=== PATIENT | male | born 1940 | race Caucasian/White ===

== ENCOUNTER 2020-11-20 12:12 | Inpatient (IN) | payer MEDICARE, MEDICAID ==
[2020-11-20 13:18] LABS: #Lymphocytes 0.9 thou/uL (1.20-3.40); #Monocytes 1.5 thou/uL (0.11-0.59); #Neutrophils 13.8 thou/uL (1.40-6.50); %Basophils 0.3 % (0.0-1.0); %Eosinophils 0.2 % (0.0-10.0); %Lymphocytes 5.7 % (21.0-51.0); %Monocytes 9.4 % (0.0-10.0); %Neutrophils 84.4 % (42.0-75.0); Hemoglobin 10.2 g/dL (14.0-18.0); Mean Corpuscular HGB CONC 30.8 g/dL (32.0-36.0); Mean Corpuscular Hemoglobin 27.8 pg (27.0-31.0); Mean Corpuscular Volume 90.3 fL (78.0-98.0); Mean Platelet Volume 8.2 fL (7.4-10.4); Platelet Count 212 thou/uL (130-400); RBC Distribution Width 13.6 % (11.5-14.5); Red Blood Cell (RBC) Count 3.66 mill/uL (4.70-6.10); White Blood Cell (WBC) Count 16.3 thou/uL (4.8-10.8)
[2020-11-20 13:32] LABS: ALT (SGPT) 44 U/L (8-55); AST (SGOT) 86 U/L (5-34); Albumin 3.2 g/dL (3.4-4.8); Alkaline Phosphatase 367 U/L (40-110); Anion Gap 20 mmol/L (10-20); BUN (Urea Nitrogen) 28 mg/dL (8.4-25.7); Bilirubin, Total 0.5 mg/dL (0.2-1.2); CK (CPK) 79 U/L (30-200); Calc. Creatinine Clearance 0 mL/min (70-130); Carbon Dioxide 24 mmol/L (23-31); Chloride 99 mmol/L (98-107); Globulin 5.3 g/dL (2.4-3.5); Glucose 102 mg/dL (83-110); Potassium 3.3 mmol/L (3.5-5.1); Protein, Total 8.5 g/dL (5.8-8.1); Sodium 140 mmol/L (136-145)
[2020-11-20] MEDS ORDERED: Acetaminophen 325 MG TAB PO PRN (14:21)
[2020-11-20] MEDS ORDERED: Ondansetron PF 4 MG/2 ML Vial IVP PRN (14:21)
[2020-11-20] MEDS ORDERED: Cefepime 2 GM VIAL ONE (14:35)
[2020-11-20] MEDS ORDERED: Potassium Chloride 20 MEQ TAB PO SCH (14:45)
[2020-11-20] MEDS ORDERED: Vancomycin 1 GM/200 ML BAG ONE (15:04)
[2020-11-20 20:55] LABS: Troponin I Less than 0.010 ng/mL (< 0.028)
[2020-11-20] MEDS: Sodium Chloride 0.9% 1,000 ML IV SCH (21:52)
[2020-11-20] MEDS: Clindamycin/D5W 900 MG in Premix Bag 1 BAG IVPB SCH ×2 (22:00→23:00)
[2020-11-20 22:02] VITALS: BMI 16.8
[2020-11-21 06:08] LABS: #Lymphocytes 1.1 thou/uL (1.20-3.40); #Monocytes 1.2 thou/uL (0.11-0.59); #Neutrophils 6.4 thou/uL (1.40-6.50); %Basophils 0.3 % (0.0-1.0); %Eosinophils 0.6 % (0.0-10.0); %Lymphocytes 12.5 % (21.0-51.0); %Monocytes 13.6 % (0.0-10.0); %Neutrophils 73.1 % (42.0-75.0); Hemoglobin 9.3 g/dL (14.0-18.0); Mean Corpuscular HGB CONC 32.2 g/dL (32.0-36.0); Mean Corpuscular Hemoglobin 29.3 pg (27.0-31.0); Mean Corpuscular Volume 90.9 fL (78.0-98.0); Mean Platelet Volume 7.6 fL (7.4-10.4); Platelet Count 166 thou/uL (130-400); RBC Distribution Width 13.6 % (11.5-14.5); Red Blood Cell (RBC) Count 3.18 mill/uL (4.70-6.10); White Blood Cell (WBC) Count 8.8 thou/uL (4.8-10.8)
[2020-11-21] MEDS: Sodium Chloride 0.9% 1,000 ML IV SCH ×2 (06:16→21:24)
[2020-11-21 06:27] LABS: Anion Gap 14 mmol/L (10-20); BUN (Urea Nitrogen) 19 mg/dL (8.4-25.7); Calc. Creatinine Clearance 49 mL/min (70-130); Calcium 8.6 mg/dL (7.8-10.44); Carbon Dioxide 26 mmol/L (23-31); Chloride 106 mmol/L (98-107); Glucose 95 mg/dL (83-110); Potassium 3.6 mmol/L (3.5-5.1); Sodium 142 mmol/L (136-145)
[2020-11-21] MEDS ORDERED: Polyethylene Glycol 3350 17 GM Packet PO PRN (07:28)
[2020-11-21] MEDS ORDERED: Aspirin 325 MG TAB PO PRN (07:28)
[2020-11-21 08:24] LABS: ALT (SGPT) 61 U/L (8-55); AST (SGOT) 112 U/L (5-34); Albumin 2.9 g/dL (3.4-4.8); Alkaline Phosphatase 322 U/L (40-110); Bilirubin, Direct 0.4 mg/dL (0.1-0.3); Bilirubin, Total 0.6 mg/dL (0.2-1.2); Protein, Total 7.5 g/dL (5.8-8.1)
[2020-11-21] MEDS: Pregabalin 50 MG CAP PO SCH ×2 (09:00→21:18)
[2020-11-21] MEDS: Carvedilol 3.125 MG TAB PO SCH ×2 (09:01→18:17)
[2020-11-21] MEDS: Apixaban 5 MG TAB PO SCH ×2 (09:01→21:19)
[2020-11-21] MEDS: Clindamycin/D5W 900 MG in Premix Bag 1 BAG IVPB SCH ×3 (09:02→23:40)
[2020-11-21] MEDS: HYDROcodone/Acetaminophen 10/325 mg Tablet PO PRN ×2 (09:03→15:49)
[2020-11-21] MEDS ORDERED: Iopamidol-370 76% 500 ML 1 ML ONE (10:21)
[2020-11-21 19:46] LABS: Bacteria/HPF 4+ HPF (None Seen); Bilirubin Negative (Negative); Blood, Urine 3+ (Negative); Glucose, Urine (Dipstick) Normal (Negative); Ketone, Urine 10 mg/dL (Negative); Leukocyte 500 Leu/uL (Negative); Nitrite Negative (Negative); Protein, Urine (Dipstick) 100 mg/dL (Neg-Trace); Specific Gravity, Urine 1.042 (1.002-1.036); Squamous Epithelial None Seen HPF (0-3); Urobilinogen Normal mg/dL (Less than 2); WBC/HPF Greater than 50 HPF (0-3)
[2020-11-21 19:47] LABS: Clarity Cloudy (Clear)
[2020-11-21 19:48] LABS: Urine Culture Reflex Yes Yes
[2020-11-21] MEDS: Atorvastatin Calcium 10 MG TAB PO SCH (21:19)
[2020-11-21] MEDS: Mirtazapine 30 MG TAB PO SCH (21:19)
[2020-11-21] MEDS: Loratadine 10 MG TAB PO SCH (21:19)
[2020-11-21] MEDS: Melatonin 3 MG TAB PO SCH (21:19)
[2020-11-22] MEDS: HYDROcodone/Acetaminophen 10/325 mg Tablet PO PRN ×4 (01:08→23:54)
[2020-11-22] MEDS: Sodium Chloride 0.9% 1,000 ML IV SCH ×3 (03:47→23:48)
[2020-11-22] MEDS: cefTRIAXone\\ROCEPHIN 1 GM in Sodium Chloride 0.9% 100 ML IVPB SCH (07:44)
[2020-11-22] MEDS: Clindamycin/D5W 900 MG in Premix Bag 1 BAG IVPB SCH ×3 (08:23→23:56)
[2020-11-22] MEDS: Pregabalin 50 MG CAP PO SCH ×2 (08:23→21:51)
[2020-11-22] MEDS: Apixaban 5 MG TAB PO SCH (08:23)
[2020-11-22] MEDS: Carvedilol 3.125 MG TAB PO SCH ×2 (08:24→16:39)
[2020-11-22] MEDS: Mirtazapine 30 MG TAB PO SCH (21:51)
[2020-11-22] MEDS: Apixaban 2.5 MG TAB PO SCH (21:52)
[2020-11-22] MEDS: Loratadine 10 MG TAB PO SCH (21:52)
[2020-11-22] MEDS: Melatonin 3 MG TAB PO SCH (21:52)
[2020-11-22] MEDS: Atorvastatin Calcium 10 MG TAB PO SCH (21:52)
[2020-11-23 04:58] LABS: #Eosinphils 0.3 thou/uL (0.0-0.7); #Lymphocytes 1.5 thou/uL (1.20-3.40); #Neutrophils 4.9 thou/uL (1.40-6.50); %Basophils 0.4 % (0.0-1.0); %Eosinophils 3.9 % (0.0-10.0); %Lymphocytes 19.7 % (21.0-51.0); %Monocytes 12.6 % (0.0-10.0); %Neutrophils 63.5 % (42.0-75.0); Hemoglobin 9.2 g/dL (14.0-18.0); Mean Corpuscular HGB CONC 30.9 g/dL (32.0-36.0); Mean Corpuscular Hemoglobin 28.3 pg (27.0-31.0); Mean Corpuscular Volume 91.3 fL (78.0-98.0); Mean Platelet Volume 7.9 fL (7.4-10.4); Platelet Count 179 thou/uL (130-400); RBC Distribution Width 13.8 % (11.5-14.5); Red Blood Cell (RBC) Count 3.27 mill/uL (4.70-6.10); White Blood Cell (WBC) Count 7.8 thou/uL (4.8-10.8)
[2020-11-23 05:24] LABS: ALT (SGPT) 74 U/L (8-55); AST (SGOT) 105 U/L (5-34); Albumin 2.6 g/dL (3.4-4.8); Alkaline Phosphatase 263 U/L (40-110); Anion Gap 10 mmol/L (10-20); BUN (Urea Nitrogen) 7 mg/dL (8.4-25.7); Bilirubin, Total 0.4 mg/dL (0.2-1.2); Calc. Creatinine Clearance 66 mL/min (70-130); Calcium 8.6 mg/dL (7.8-10.44); Carbon Dioxide 31 mmol/L (23-31); Chloride 104 mmol/L (98-107); Globulin 4.5 g/dL (2.4-3.5); Glucose 96 mg/dL (83-110); Protein, Total 7.1 g/dL (5.8-8.1); Sodium 142 mmol/L (136-145)
[2020-11-23] MEDS: Clindamycin/D5W 900 MG in Premix Bag 1 BAG IVPB SCH ×2 (09:24→15:43)
[2020-11-23] MEDS: Carvedilol 3.125 MG TAB PO SCH ×2 (09:25→15:43)
[2020-11-23] MEDS: Apixaban 2.5 MG TAB PO SCH ×2 (09:25→21:02)
[2020-11-23] MEDS: Pregabalin 50 MG CAP PO SCH ×2 (09:25→20:46)
[2020-11-23] MEDS: HYDROcodone/Acetaminophen 10/325 mg Tablet PO PRN ×2 (10:11→20:47)
[2020-11-23] MEDS: cefTRIAXone\\ROCEPHIN 1 GM in Sodium Chloride 0.9% 100 ML IVPB SCH (10:11)
[2020-11-23] MEDS ORDERED: Potassium Chloride 20 MEQ TAB PO SCH (17:45)
[2020-11-23] MEDS: Loratadine 10 MG TAB PO SCH (20:46)
[2020-11-23] MEDS: Melatonin 3 MG TAB PO SCH (20:46)
[2020-11-23] MEDS: Atorvastatin Calcium 10 MG TAB PO SCH (20:46)
[2020-11-23] MEDS: Mirtazapine 30 MG TAB PO SCH (21:02)
[2020-11-24] MEDS: Clindamycin/D5W 900 MG in Premix Bag 1 BAG IVPB SCH ×4 (00:25→23:42)
[2020-11-24 05:33] LABS: #Eosinphils 0.4 thou/uL (0.0-0.7); #Lymphocytes 1.5 thou/uL (1.20-3.40); #Neutrophils 5.7 thou/uL (1.40-6.50); %Basophils 0.5 % (0.0-1.0); %Eosinophils 4.7 % (0.0-10.0); %Neutrophils 65.8 % (42.0-75.0); Hemoglobin 10.2 g/dL (14.0-18.0); Mean Corpuscular HGB CONC 31.4 g/dL (32.0-36.0); Mean Corpuscular Hemoglobin 28.7 pg (27.0-31.0); Mean Corpuscular Volume 91.4 fL (78.0-98.0); Mean Platelet Volume 7.8 fL (7.4-10.4); Platelet Count 202 thou/uL (130-400); RBC Distribution Width 13.7 % (11.5-14.5); Red Blood Cell (RBC) Count 3.56 mill/uL (4.70-6.10); White Blood Cell (WBC) Count 8.7 thou/uL (4.8-10.8)
[2020-11-24 05:57] LABS: ALT (SGPT) 60 U/L (8-55); AST (SGOT) 66 U/L (5-34); Albumin 2.6 g/dL (3.4-4.8); Alkaline Phosphatase 261 U/L (40-110); Anion Gap 14 mmol/L (10-20); BUN (Urea Nitrogen) 8 mg/dL (8.4-25.7); Bilirubin, Total 0.4 mg/dL (0.2-1.2); Calc. Creatinine Clearance 67 mL/min (70-130); Calcium 8.7 mg/dL (7.8-10.44); Carbon Dioxide 30 mmol/L (23-31); Chloride 102 mmol/L (98-107); Globulin 4.7 g/dL (2.4-3.5); Glucose 85 mg/dL (83-110); Potassium 3.4 mmol/L (3.5-5.1); Protein, Total 7.3 g/dL (5.8-8.1); Sodium 143 mmol/L (136-145)
[2020-11-24] MEDS: HYDROcodone/Acetaminophen 10/325 mg Tablet PO PRN ×3 (07:20→19:20)
[2020-11-24] MEDS: Pregabalin 50 MG CAP PO SCH ×2 (09:21→22:24)
[2020-11-24] MEDS: Carvedilol 3.125 MG TAB PO SCH ×2 (09:23→18:04)
[2020-11-24] MEDS: Apixaban 2.5 MG TAB PO SCH ×2 (11:31→22:23)
[2020-11-24] MEDS: cefTRIAXone\\ROCEPHIN 1 GM in Sodium Chloride 0.9% 100 ML IVPB SCH (11:32)
[2020-11-24] MEDS ORDERED: Potassium Chloride 20 MEQ TAB PO SCH (16:15)
[2020-11-24] MEDS: Loratadine 10 MG TAB PO SCH (22:22)
[2020-11-24] MEDS: Melatonin 3 MG TAB PO SCH (22:23)
[2020-11-24] MEDS: Atorvastatin Calcium 10 MG TAB PO SCH (22:23)
[2020-11-24] MEDS: Mirtazapine 30 MG TAB PO SCH (22:24)
[2020-11-25] MEDS: HYDROcodone/Acetaminophen 10/325 mg Tablet PO PRN ×3 (03:29→17:00)
[2020-11-25 06:04] LABS: #Basophils 0.1 thou/uL (0.0-0.2); #Eosinphils 0.6 thou/uL (0.0-0.7); #Lymphocytes 1.3 thou/uL (1.20-3.40); #Neutrophils 6.7 thou/uL (1.40-6.50); %Basophils 0.9 % (0.0-1.0); %Lymphocytes 13.7 % (21.0-51.0); %Monocytes 10.6 % (0.0-10.0); %Neutrophils 68.7 % (42.0-75.0); Hemoglobin 10.4 g/dL (14.0-18.0); Mean Corpuscular HGB CONC 31.4 g/dL (32.0-36.0); Mean Corpuscular Hemoglobin 28.8 pg (27.0-31.0); Mean Corpuscular Volume 91.6 fL (78.0-98.0); Mean Platelet Volume 7.3 fL (7.4-10.4); Platelet Count 201 thou/uL (130-400); RBC Distribution Width 13.7 % (11.5-14.5); White Blood Cell (WBC) Count 9.8 thou/uL (4.8-10.8)
[2020-11-25 06:21] LABS: ALT (SGPT) 46 U/L (8-55); AST (SGOT) 44 U/L (5-34); Albumin 2.7 g/dL (3.4-4.8); Alkaline Phosphatase 263 U/L (40-110); Anion Gap 15 mmol/L (10-20); BUN (Urea Nitrogen) 9 mg/dL (8.4-25.7); Bilirubin, Total 0.4 mg/dL (0.2-1.2); Calc. Creatinine Clearance 66 mL/min (70-130); Calcium 8.6 mg/dL (7.8-10.44); Carbon Dioxide 30 mmol/L (23-31); Chloride 101 mmol/L (98-107); Globulin 4.6 g/dL (2.4-3.5); Glucose 78 mg/dL (83-110); Potassium 3.6 mmol/L (3.5-5.1); Protein, Total 7.3 g/dL (5.8-8.1); Sodium 142 mmol/L (136-145)
[2020-11-25] MEDS: Pregabalin 50 MG CAP PO SCH (08:58)
[2020-11-25] MEDS: Carvedilol 3.125 MG TAB PO SCH ×2 (08:59→16:59)
[2020-11-25] MEDS: Clindamycin/D5W 900 MG in Premix Bag 1 BAG IVPB SCH ×2 (08:59→15:57)
[2020-11-25] MEDS: cefTRIAXone\\ROCEPHIN 1 GM in Sodium Chloride 0.9% 100 ML IVPB SCH (10:36)
[2020-11-25] MEDS: Apixaban 2.5 MG TAB PO SCH (12:35)
[2020-11-25 16:19] VITALS: BP 133/65; TEMP 98.6
== END 2020-11-25 18:00 | DRG 602 ==
LOC: ERS 12:12 → 2NO 14:21 → UNDOADMIN 14:21 → ERHOLD 14:21 → 2NO 19:59 → SURG B 11-23 19:12
PROVIDERS: ADMIT Internal Medicine; ATTEND Internal Medicine
DX: L03.116 Cellulitis of left lower limb (principal); J69.0 Pneumonitis due to inhalation of food and vomit; N17.9 Acute kidney failure, unspecified; Z68.1 Body mass index [BMI] 19.9 or less, adult; N39.0 Urinary tract infection, site not specified; J90 Pleural effusion, not elsewhere classified; J96.10 Chronic respiratory failure, unspecified whether with hypoxia or hypercapnia; I10 Essential (primary) hypertension; E78.5 Hyperlipidemia, unspecified; I73.9 Peripheral vascular disease, unspecified; F03.90 Unspecified dementia, unspecified severity, without behavioral disturbance, psychotic disturbance, mood disturbance, and anxiety; E87.6 Hypokalemia; E86.0 Dehydration; R74.01 Elevation of levels of liver transaminase levels; R63.6 Underweight; E78.00 Pure hypercholesterolemia, unspecified; K80.20 Calculus of gallbladder without cholecystitis without obstruction; K21.9 Gastro-esophageal reflux disease without esophagitis; B96.20 Unspecified Escherichia coli [E. coli] as the cause of diseases classified elsewhere; Z86.79 Personal history of other diseases of the circulatory system; Z79.01 Long term (current) use of anticoagulants; Z79.82 Long term (current) use of aspirin
CPT/HCPCS: 36415; 71045; 71046; 75635; 76705; 80048; 80053; 80076; 81001; 82550; 83605; 83880; 84145; 84484; 85025; 85652; 86140; 87040; 87077; 87086; 87186; 93005; 93306; 94640; 96365; 96367; J0692; J0696; J3370; J3490; J7620; Q9967

== ENCOUNTER 2021-01-30 17:33 | Emergency (ER) | payer MEDICARE, MEDICAID ==
[2021-01-30 18:36] LABS: #Lymphocytes 1.4 thou/uL (1.20-3.40); #Monocytes 1.1 thou/uL (0.11-0.59); %Basophils 0.2 % (0.0-1.0); %Eosinophils 0.3 % (0.0-10.0); %Lymphocytes 10.2 % (21.0-51.0); %Monocytes 8.3 % (0.0-10.0); %Neutrophils 81.1 % (42.0-75.0); Hemoglobin 10.9 g/dL (14.0-18.0); Mean Corpuscular HGB CONC 31.6 g/dL (32.0-36.0); Mean Corpuscular Hemoglobin 29.5 pg (27.0-31.0); Mean Corpuscular Volume 93.4 fL (78.0-98.0); Mean Platelet Volume 7.3 fL (7.4-10.4); Platelet Count 261 thou/uL (130-400); RBC Distribution Width 13.8 % (11.5-14.5); White Blood Cell (WBC) Count 13.5 thou/uL (4.8-10.8)
[2021-01-30 18:51] LABS: ALT (SGPT) 7 U/L (8-55); AST (SGOT) 16 U/L (5-34); Alkaline Phosphatase 119 U/L (40-110); BUN (Urea Nitrogen) 17 mg/dL (8.4-25.7); Bilirubin, Total 0.4 mg/dL (0.2-1.2); Calc. Creatinine Clearance 0 mL/min (70-130); Calcium 9.1 mg/dL (7.8-10.44); Globulin 5.5 g/dL (2.4-3.5); Glucose 162 mg/dL (83-110); Protein, Total 8.5 g/dL (5.8-8.1)
[2021-01-30 19:01] LABS: Chloride 96 mmol/L (98-107); Sodium 147 mmol/L (136-145)
[2021-01-30 19:04] LABS: Anion Gap 14 mmol/L (10-20); Carbon Dioxide 39 mmol/L (23-31)
[2021-01-30 19:11] LABS: Potassium 2.4 mmol/L (3.5-5.1)
[2021-01-30 19:55] LABS: Magnesium 1.5 mg/dL (1.6-2.6)
[2021-01-30] MEDS ORDERED: Potassium Chloride 20 MEQ TAB ONE (20:02)
[2021-01-30] MEDS ORDERED: Magnesium 2 GM/50 ML BAG (IN WATER) ONE (20:02)
[2021-01-30] MEDS ORDERED: Potassium Chloride 40 MEQ in Sodium Chloride 0.9% 250 ML 250 ML IVPB SCH (20:15)
[2021-01-31 01:19] LABS: Anion Gap 13 mmol/L (10-20); BUN (Urea Nitrogen) 14 mg/dL (8.4-25.7); Calc. Creatinine Clearance 0 mL/min (70-130); Calcium 9.3 mg/dL (7.8-10.44); Carbon Dioxide 37 mmol/L (23-31); Chloride 102 mmol/L (98-107); Glucose 124 mg/dL (83-110); Potassium 3.5 mmol/L (3.5-5.1); Sodium 148 mmol/L (136-145)
== END 2021-01-31 02:43 ==
LOC: ERS 17:33
DX: E87.6 Hypokalemia (principal); K21.9 Gastro-esophageal reflux disease without esophagitis; E78.5 Hyperlipidemia, unspecified; I10 Essential (primary) hypertension; Z79.82 Long term (current) use of aspirin; Z79.899 Other long term (current) drug therapy; Z79.01 Long term (current) use of anticoagulants
CPT/HCPCS: 36415; 71045; 80048; 80053; 83735; 84484; 85025; 93005; 96365; 96366; 96367; J3475; J3480; J7050